=== PATIENT | female | born 1980 ===

== ENCOUNTER 2021-11-25 13:38 | Inpatient (IN) | payer MEDICARE, MEDICAID ==
[2021-11-25] MEDS ORDERED: LORazepam 2 MG/ML INJ IM PRN (13:53)
[2021-11-25] MEDS ORDERED: chlorproMAZINE 25 MG/ML 2 ML AMP IM PRN (13:53)
[2021-11-25] MEDS ORDERED: LORazepam 1 MG TAB PO PRN (13:53)
[2021-11-25] MEDS ORDERED: MAG HYDROX/AL HYDROX/SIMETH 30 ML CUP PO PRN (13:53)
[2021-11-25] MEDS ORDERED: ACETAMINOPHEN TAB 325 MG TAB PO PRN (13:53)
[2021-11-25] MEDS ORDERED: MAGNESIUM HYDROXIDE 2,400 MG/10 ML CUP PO PRN (13:53)
[2021-11-25] MEDS ORDERED: DIVALPROEX 500 MG TABLET.DR PO SCH (21:00)
[2021-11-26 08:07] VITALS: BP 134/82; PULSE 100; RESP 16; TEMP 98.5
[2021-11-26] MEDS ORDERED: BENZTROPINE MESYLATE 0.5 MG TAB PO SCH (09:00)
[2021-11-26] MEDS ORDERED: DIVALPROEX 500 MG TABLET.DR PO SCH (09:00)
--- NOTE | 2021-11-26 13:33 | P.HP ---
Psychiatric H&P - . H&P Date: 11/26/21 History & Physical: Allergies Allergy/AdvReac Type Severity Reaction Status Date / Time No Known Allergies Allergy Verified 11/25/21 13:53 Vital Signs Temp 98.5 F 11/26/21 08:06 Pulse 100 11/26/21 08:06 Resp 16 11/26/21 08:06 BP 134/82 11/26/21 08:06 Pulse Ox 97 11/26/21 08:06 FiO2 Intake & Output 11/25/21 11/26/21 11/26/21 18:59 06:59 18:59 Weight 77 kg 77 kg 11/26/21 13:32 IDENTIFYING DATA: Patient is a single, unemployed, 41-year-old -[place] female who presents to the hospital after being transferred from [facility] for psychosis. HPI: Patient presented to the hospital on 11/26/2021, transferred from [facility] for psychiatric treatment. As repetition, the patient reported suicidal ideation with a plan. As per for his clinical certificate, the patient was presenting as overtly psychotic. As per chart review, the patient was reportedly far from baseline as per information given to the treatment team at [facility] by her prison. The patient presented to [facility] after being found unresponsive on the street. The patient states that she felt that something was wrong with her heart and her breathing and that she ended up pa ssing out on the street and it was very scary for her. She then reports that she woke up in the hospital and has been there for a week prior to her admission to this hospital. Currently, the patient is not endorsing any significant psychiatric pathology at this time. She is vehemently denying any suicidal or homicidal ideation, intention, and/or plan. She reports no prior attempts at suicide. She denies any significant history of overt manic episodes. She denies any periods of excessive energy, grandiosity, flight of ideas, or increased goal-directed activity. In regards to psychotic symptoms, the patient is currently denying any auditory or visual hallucinations. She reports no paranoia or other delusions. The patient has had previous trials of different medications and states that she is currently on a home regimen of Depakote and Zyprexa. The patient is currently alert and oriented in all spheres has been cooperative and polite with staff and peers. PAST PSYCHIATRIC HISTORY: Patient states that she has been previously diagnosed with schizophrenia. She reports previous trials of Prolixin, Clozaril, Zyprexa, and Depakote. She does report prior psychiatric hospitalizations but states that it has been a year at least. She reports that she follows up with [facility]. Patient denies any history of suicide attempts in the past. PMH: Denies ALLERGIES: NO KNOWN DRUG ALLERGIES CHEMICAL DEPENDENCY HISTORY: The patient denies any significant substance use at this time. She does report smoking 1-2 packs per day. She otherwise denies any marijuana, alcohol, or illicit drug use. She reports using marijuana in the past however states has been years. FAMILY PSYCHIATRIC/SUBSTANCE USE HISTORY: No reported history SOCIAL HISTORY: Patient reports that she is single, never , and has no children. She is currently unemployed but reports that she does have income through Social Security. She has a guardian. She resides in a prison. She was born in [place] and moved to [place] when she was 5 years old. MENTAL STATUS EXAM: General Appearance: Patient appears to be stated age is alert, directable, and attempts to cooperate. Patient appears to have fair hygiene and grooming. Behavior: Patient is seated without any agitated behavior. Psychomotor activity is normal. Speech: Patient's speech is fluent and nonpressured. Mood/Affect: Patient reports their mood is "doing all right." Affect is congruent and constricted. Suicidality/Homicidality: Patient reports no suicidal or homicidal ideation, intention, and/or plan. Perceptions: Patient denies any visual hallucinations and denies any auditory hallucinations Though content/process: There is no evidence of any delusional thought content and thought process is linear and goal-directed. Memory and concentration: AOX3, grossly intact for the purposes of this session. Can spell "WORLD" backwards Judgment and insight: Fair STRENGTHS/WEAKNESSES: Strength is that the patient appears to be resilient and resourceful. Unable to clarify patient weaknesses side from her unemployment and residing in a prison. INTELLECT: average IMPRESSIONS: Schizophrenia PLAN: -Patient is admitted under voluntary status to [facility] for stabilization of psychiatric symptoms and safety. -As there is no criteria for continued psychiatric hospitalization, the patient will be discharged today.
--- NOTE | 2021-11-26 13:37 | P.DS ---
Providers Date of admission: 11/25/21 17:19 Expected date of discharge: 11/26/21 Attending physician: Leodan Roth MD Consults: 11/25/21 13:53 Consult Physician Routine Consulting Provider: [facility] Consult Reason/Comments: H & P Do you want consulting provider notified?: Yes Primary care physician: Stated None - Discharge Diagnosis(es) (1) Schizophrenia Current Visit: Yes Status: Acute Priority: High Hospital Course: Admission HPI: Patient is a single, unemployed, 41-year-old -[place]izen [place] female who presents to the hospital after being transferred from [facility] for psychosis. Patient presented to the hospital on 11/26/2021, transferred from [facility] for psychiatric treatment. As repetition, the patient reported suicidal ideation with a plan. As per for his clinical certificate, the patient was presenting as overtly psychotic. As per chart review, the patient was reportedly far from baseline as per information given to the treatment team at [facility] by her long term. The patient presented to [facility] after being found unresponsive on the street. The patient states that she felt that something was wrong with her heart and her breathing and that she ended up passing out on the street and it was very scary for her. She then reports that she woke up in the hospital and has been there for a week prior to her admission to this hospital. Currently, the patient is not endorsing any significant psychiatric pathology at this time. She is vehemently denying any suicidal or homicidal ideation, intention, and/or plan. She reports no prior attempts at suicide. She denies any significant history of overt manic episodes. She denies any periods of excessive energy, grandiosity, flight of ideas, or increased goal-directed activity. In regards to psychotic symptoms, the patient is currently denying any auditory or visual hallucinations. She reports no paranoia or other delusions. The patient has had previous trials of different medications and states that she is currently on a home regimen of Depakote and Zyprexa. The patient is currently alert and oriented in all spheres has been cooperative and polite with staff and peers. Patient states that she has been previously diagnosed with schizophrenia. She reports previous trials of Prolixin, Clozaril, Zyprexa, and Depakote. She does report prior psychiatric hospitalizations but states that it has been a year at least. She reports that she follows up with [facility]. Patient denies any history of suicide attempts in the past. Hospital course: After the initial assessment, the patient is not presenting with any significant criteria for continued inpatient psychiatric hospitalization. The patient has been staying at the [facility] emergency department for approximately a week prior to her presentation in her hospital. It is possible that during this time that she has stabilized psychiatrically. The patient is not presenting with any imminent risk of harm to self, others, or an inability to care for herself. She appears to be resourceful and is future and goal oriented. There is also concern that the patient's petition is inconsistent with what was written in the clinical certificate and as well as with the patient has been reporting herself. In order to maintain the patient's rights to autonomy and freedom of movement, we will go forward with discharge today. The patient was counseled at length on the importance of medication adherence and appropriate outpatient follow-up. Mental status exam: General Appearance: Patient appears to be stated age is alert, pleasant, and cooperative. Patient is in no acute distress and has fair hygiene and grooming Behavior: Patient is calmly seated without any agitated behavior. Speech: Patient's speech is fluent and nonpressured. Mood/Affect: Patient reports their mood is "doing alright", affect is congruent, somewhat constricted, and euthymic. Suicidality/Homicidality: Patient denies having any suicidal or homicidal ideation intent or plan. Perceptions: Patient denies any auditory or visual hallucinations. Though content/process: There is no evidence of any delusional thought content and thought process is linear and goal-directed. more future oriented Memory and concentration: AOX3, grossly intact for the purposes of this session. Can spell "WORLD" backwards correctly. Judgment and insight: Improved with guarded prognosis Impression: Schizophrenia Plan: -Continue with discharge today as patient has improved and stabilized psychiatrically and is not currently an imminent threat to herself and/or others. Patient will remain at chronically elevated risk due to her severity mental illness, however the patient is currently stable at this time. -Continue medications: There is some confusion as to what the patient medications medications are as Dayo Cano listed multiple antipsychotic medications that she is reportedly taking. The patient maintains that she is only on Depakote and Zyprexa. She is recommended to continue the Depakote and Zyprexa as her home medications at this time. She is strongly recommended to follow-up in the outpatient setting -Patient counseled on abstaining from recreational drugs and marijuana and alcohol. Was informed/educated on the adverse effects on their physical and mental health. Patient verbally agreed and understood. -Patient was instructed to return to the hospital or seek immediate medical care if their psychiatric or medical symptoms do worsen or reoccur. Vital Signs Temp 98.5 F 11/26/21 08:06 Pulse 100 11/26/21 08:06 Resp 16 11/26/21 08:06 BP 134/82 11/26/21 08:06 Pulse Ox 97 11/26/21 08:06 FiO2 Intake & Output 11/25/21 11/26/21 11/26/21 18:59 06:59 18:59 Weight 77 kg 77 kg Allergies Allergy/AdvReac Type Severity Reaction Status Date / Time No Known Allergies Allergy Verified 11/25/21 13:53 Patient Condition at Discharge: Stable Plan - Discharge Summary Discharge Rx Participant: No Discharge Disposition: HOME SELF-CARE
[2021-11-26 14:21] LABS: Basophils % (A) 0 %; Eosinophils # (A) 0.2 k/uL (0-0.7); Eosinophils % (A) 2 %; HCT 45.9 % (34.0-46.0); HGB 14.2 gm/dL (11.4-16.0); Lymphocytes # (A) 3.3 k/uL (1.0-4.8); Lymphocytes % (A) 30 %; MCH 26.4 pg (25.0-35.0); MCHC 30.9 g/dL (31.0-37.0); MCV 85.4 fL (80.0-100.0); Monocytes # (A) 0.7 k/uL (0-1.0); Monocytes % (A) 7 %; Neutrophils # (A) 6.5 k/uL (1.3-7.7); Neutrophils % (A) 60 %; Platelet Count 218 k/uL (150-450); RBC 5.37 m/uL (3.80-5.40); RDW 13.2 % (11.5-15.5); WBC 10.8 k/uL (3.8-10.6)
[2021-11-26 14:36] LABS: ALT 16 U/L (4-34); AST 21 U/L (14-36); African American GFR (CKD) >90 (>60 ml/min/1.73 sqM); Albumin 4.4 g/dL (3.5-5.0); Alkaline Phosphatase 71 U/L (38-126); Anion Gap 12 mmol/L; Blood Urea Nitrogen 13 mg/dL (7-17); Calcium 9.3 mg/dL (8.4-10.2); Carbon Dioxide 22 mmol/L (22-30); Chloride 102 mmol/L (98-107); Glucose 152 mg/dL (74-99); Non-African American GFR(CKD) >90 (>60 ml/min/1.73 sqM); Potassium 4.2 mmol/L (3.5-5.1); Sodium 136 mmol/L (137-145); Total Bilirubin 0.2 mg/dL (0.2-1.3); Total Protein 7.7 g/dL (6.3-8.2)
[2021-11-26 15:04] LABS: Valproic Acid (Depakene) 82.9 ug/mL
[2021-11-27 01:45] LABS: Chol/HDL Ratio 3.21 Ratio; LDL Cholesterol,Calculated 94.8 mg/dL (0.0-131.0)
== END 2021-11-26 16:00 | disposition home or self-care (01) | DRG 885 ==
LOC: EEVIPCON → 3MHU 17:19
PROVIDERS: ADMIT Psychiatry & Neurology Psychiatry; ATTEND Psychiatry & Neurology Psychiatry
DX: F20.9 Schizophrenia, unspecified (principal); R45.851 Suicidal ideations; F17.210 Nicotine dependence, cigarettes, uncomplicated
CPT/HCPCS: 80053; 80061; 80164; 83036; 85025